=== PATIENT | female | born 1970 | race Caucasian/White ===

== ENCOUNTER 2019-03-12 06:46 | Day surgery (SDC) | payer OTHER ==
[~2019-03-12 06:46] MED LIST: AVALIDE; GABAPENTIN300 MG PO; LYRICA PO; PLAQUENIL PO; SINGULAIR10 MG PO; SYNTHROID50 MCG PO; [UNRECOGNIZED DRUG - CODE] PO
== END 2019-03-12 15:40 | disposition home or self-care (01) ==
LOC: CIR.AMB 06:46
DX: N93.8 Other specified abnormal uterine and vaginal bleeding (principal)